=== PATIENT | female | born 1950 | race African-American/Black ===

== ENCOUNTER → 2016-12-12 | Outpatient (CLI) | payer MEDICARE, OTHER ==
[2015-08-30 11:00] VITALS: BP 158/66
[~2016-12-12] MED LIST: ALPR0.254 PO; AMLO1CAP10 PO; AMLO5TAB2 PO; ATOR10TA60 PO; DIPH1TAB5 PO; ESOM40CA PO; ESOM5SUS PO; FLUT16SP NS; GABA-586 PO; MELO15TA23 PO; METF-620 PO; METF500T4 PO; MONT10TA9 PO; OMEP40CA5 PO; ONDA4TAB10 PO; ONDA4TAB11 PO; PRAV40TA2 PO; SAXA1TBM3 PO; TRAM50TA PO; TRIA1CAP3 PO
--- NOTE | 2016-12-12 14:57 | RAD ---
DATE: 12/12/2016 EXAM: DIGITAL SCREEN BILAT W/CAD HISTORY: Routine screening COMPARISON: 09/24/2015 This study was interpreted with the benefit of Computerized Aided Detection (CAD). The breast parenchyma is primarily fatty replaced. Breast parenchyma level density A. FINDINGS: An old breast biopsy marker is again noted medially in the right breast. No new or enlarging breast densities are seen. Benign type calcifications are present. No suspicious microcalcifications have developed. IMPRESSION: Stable mammograms without evidence of malignancy. BI-RADS CATEGORY: 2 BENIGN FINDING(S) RECOMMENDED FOLLOW-UP: 12M 12 MONTH FOLLOW-UP PQRS compliance statement: Patient information was entered into a reminder system with a target due date for the next mammogram. Mammography is a sensitive method for finding small breast cancers, but it does not detect them all and is not a substitute for careful clinical examination. A negative mammogram does not negate a clinically suspicious finding and should not result in delay in biopsying a clinically suspicious abnormality. "Our facility is accredited by the [employer] Mammography [employer]."
== END | disposition home or self-care (01) ==
LOC: MAMMO 08:20
PROVIDERS: ATTEND Internal Medicine
DX: Z12.31 Encounter for screening mammogram for malignant neoplasm of breast (principal)
CPT/HCPCS: G0202; 77067

== ENCOUNTER 2017-06-10 18:35 | Emergency (ER) | payer MEDICARE, OTHER ==
[2017-06-10 19:11] VITALS: BP 204/87
--- NOTE | 2017-06-10 23:50 | PHYS DOC ---
Past Medical History Past Medical History: Diabetes-Type II, Hypertension Additional Past Medical Histor: Hard of hearing. Past Surgical History: Cholecystectomy, Gastric Bypass, Other Additional Past Surgical Histo: BREAST REDUCTION Alcohol Use: None Drug Use: None Adult General Chief Complaint Chief Complaint: SKIN PROBLEM [facility] Patient is a 66 year old who presents with rash to left lateral neck and left posterior earlobe. Rash began yesterday. It is erythematous mildly indurated and maculopapular It is painfull, minimally tender and itches. There is no drainage or crusting or soft tissue sloughing. No history of shingles. Review of Systems Review of Systems ROS PER HPI [] All other systems were reviewed and found to be within normal limits, except as documented in this note. Allergies Allergies Allergies Coded Allergies Type Severity Reaction Last Updated Verified Anesthetics - Amide Type Allergy Severe ANAPHYLAXIS (FROM EPIDURAL) 08/30/15 Yes Anesthetics - Dayanara Type- Parabens Allergy Severe ANAPHYLAXIS (FROM EPIDURAL) 08/30/15 Yes codeine Allergy Severe Anaphylaxis 08/29/15 Yes Physical Exam Physical Exam Constitutional: Well developed, well nourished, no acute distress, non-toxic appearance. [] HENT: Normocephalic, atraumatic, bilateral external ears normal, oropharynx moist, no oral exudates, nose normal. [] Eyes: PERRLA, EOMI, conjunctiva normal, no discharge. [] Neck: Normal range of motion, no tenderness, supple, no stridor. [] Cardiovascular:Heart rate regular rhythm, no murmur [] Lungs & Thorax: Bilateral breath sounds clear to auscultation [] Abdomen: Bowel sounds normal, soft, no tenderness, no masses, no pulsatile masses. [] Skin: NECK, lefts side of neck Erythematous mildly indurated and maculopapular. Painfull, minimally tender and itches. no drainage or crusting or soft tissue sloughing. No streaking or cellulitis.[] Extremities: No tenderness, no cyanosis, no clubbing, ROM intact, no edema. [] Neurologic: Alert and oriented X 3, normal motor function, normal sensory function, no focal deficits noted. [] Psychologic: Affect normal, judgement normal, mood normal. [] Current Patient Data Vital Signs Vital Signs Date Time Temp Pulse Resp B/P (MAP) Pulse Ox O2 Delivery O2 Flow Rate FiO2 06/10/17 19:11 97.9 66 16 100 Room Air 97.9 EKG EKG [] Radiology/Procedures Radiology/Procedures [] Course & Med Decision Making Course & Med Decision Making Pertinent Labs and Imaging studies reviewed. (See chart for details) [Neck Rash follows dermatome pattern consistent with shingles. Will treat with PCP follow-up. Return precautions reviewed.] Dragon Disclaimer Dragon Disclaimer This electronic medical record was generated, in whole or in part, using a voice recognition dictation system. Departure Departure Impression: Primary Impression: Shingles outbreak Disposition: 01 HOME, SELF-CARE Condition: GOOD Patient Instructions: Shingles, [id number] Additional Instructions: Please take medications as directed and follow up with your PCP in 3-5 days for re-evaluation. DAIN GOODWIN DO Jun 10, 2017 23:50
== END 2017-06-10 19:37 | disposition home or self-care (01) ==
LOC: ER 18:35
DX: B02.9 Zoster without complications (principal); E11.9 Type 2 diabetes mellitus without complications; I10 Essential (primary) hypertension; Z90.49 Acquired absence of other specified parts of digestive tract; Z88.5 Allergy status to narcotic agent; Z88.4 Allergy status to anesthetic agent
CPT/HCPCS: 99283

== ENCOUNTER 2017-06-27 16:07 | Emergency (ER) | payer MEDICARE, OTHER ==
[2017-06-27 17:11] LABS: ADD MAN DIFF? NO
[2017-06-27 17:13] LABS: BASO % 1 % (0-3); EOS % 7 % (0-3); HEMATOCRIT 38.3 % (36.0-47.0); HEMOGLOBIN 12.2 g/dL (12.0-15.5); LYMPH # 1.5 x10^3/uL (1.0-4.8); LYMPH % 20 % (24-48); MEAN CORPUSCULAR HEMOGLOBIN 28 pg (25-35); MEAN CORPUSCULAR HGB CONC 32 g/dL (31-37); MEAN CORPUSCULAR VOLUME 87 fL (79-100); MONO % 10 % (0-9); NEUT % 62 % (31-73); PLATELET COUNT 309 x10^3/uL (140-400); RED CELL DISTRIBUTION WIDTH 15.8 % (11.5-14.5); WHITE BLOOD COUNT 7.4 x10^3/uL (4.0-11.0)
[2017-06-27 17:24] LABS: ANION GAP 7 (6-14); BLOOD UREA NITROGEN 16 mg/dL (7-20); CARBON DIOXIDE 31 mmol/L (21-32); CHLORIDE 104 mmol/L (98-107); CREATININE 0.9 mg/dL (0.6-1.0); GFR 75.3; GLUCOSE 136 mg/dL (70-99); SODIUM 142 mmol/L (136-145)
[2017-06-27 17:27] LABS: ALBUMIN 3.1 g/dL (3.4-5.0); ALK PHOS 153 U/L (46-116); ALT (SGPT) 107 U/L (14-59); AST (SGOT) 84 U/L (15-37); DIRECT BILIRUBIN 0.1 mg/dL (0.0-0.2); TOTAL BILIRUBIN 0.3 mg/dL (0.2-1.0); TOTAL PROTEIN 7.8 g/dL (6.4-8.2)
[2017-06-27 17:29] LABS: TROPONINI < 0.017 ng/mL (0.000-0.055)
[2017-06-27 19:35] LABS: BILIRUBIN,URINE NEGATIVE (NEG); GLUCOSE,URINE 250 mg/dL (NEG); NITRITE,URINE NEGATIVE (NEG); PH,URINE 6.5; PROTEIN,URINE NEGATIVE (NEG-TRACE)
[2017-06-27 19:41] LABS: BACTERIA,URINE MODERATE /HPF (0-FEW); RBC,URINE 0 /HPF (0-2); SQUAMOUS EPITHELIAL CELL,UR MOD /LPF
== END 2017-06-27 20:52 | disposition home or self-care (01) ==
LOC: ER 16:07
DX: R42 Dizziness and giddiness (principal); E11.9 Type 2 diabetes mellitus without complications; I10 Essential (primary) hypertension; Z88.4 Allergy status to anesthetic agent; Z88.5 Allergy status to narcotic agent
CPT/HCPCS: 36415; 70450; 71010; 80048; 80076; 81001; 83690; 84484; 85025; 87086; 93005; 99285-25

== ENCOUNTER → 2017-12-14 | Outpatient (CLI) | payer MEDICARE, OTHER | END | disposition home or self-care (01) | LOC: MAMMO 08:29 | DX: Z12.31 Encounter for screening mammogram for malignant neoplasm of breast (principal) | CPT/HCPCS: 77063; 77067 ==

== ENCOUNTER → 2017-12-29 | Outpatient (CLI) | payer MEDICARE, OTHER | END | disposition home or self-care (01) | LOC: MAMMO 09:47 | DX: R92.8 Other abnormal and inconclusive findings on diagnostic imaging of breast (principal) | CPT/HCPCS: 76641; 77066 ==

== ENCOUNTER → 2018-01-21 | Day surgery (SDC) | payer OTHER ==
[~2018-01-21] MED LIST changes: -ALPR0.254 PO; -AMLO1CAP10 PO; -AMLO5TAB2 PO; -ATOR10TA60 PO; -DIPH1TAB5 PO; -ESOM40CA PO; -ESOM5SUS PO; -FLUT16SP NS; -GABA-586 PO; +LIDOCAINE 2% PF Vial for OR 5 ML VIAL.; -MELO15TA23 PO; -METF-620 PO; -METF500T4 PO; -MONT10TA9 PO; -OMEP40CA5 PO; -ONDA4TAB10 PO; -ONDA4TAB11 PO; -PRAV40TA2 PO; +PROPOFOL 20 ML IV; -SAXA1TBM3 PO; -TRAM50TA PO; -TRIA1CAP3 PO
== END | disposition home or self-care (01) ==
LOC: ENDOS 10:11
DX: Z12.11 Encounter for screening for malignant neoplasm of colon (principal); K63.5 Polyp of colon; K64.0 First degree hemorrhoids; Z80.0 Family history of malignant neoplasm of digestive organs; Z88.5 Allergy status to narcotic agent; Z88.8 Allergy status to other drugs, medicaments and biological substances; M19.90 Unspecified osteoarthritis, unspecified site; K21.9 Gastro-esophageal reflux disease without esophagitis; I10 Essential (primary) hypertension; E11.9 Type 2 diabetes mellitus without complications; Z82.49 Family history of ischemic heart disease and other diseases of the circulatory system; Z90.49 Acquired absence of other specified parts of digestive tract; Z98.890 Other specified postprocedural states; Z98.84 Bariatric surgery status; Z79.84 Long term (current) use of oral hypoglycemic drugs; Z79.899 Other long term (current) drug therapy; Z88.4 Allergy status to anesthetic agent; E78.00 Pure hypercholesterolemia, unspecified; E66.9 Obesity, unspecified; E03.9 Hypothyroidism, unspecified; F41.9 Anxiety disorder, unspecified; Z80.3 Family history of malignant neoplasm of breast
CPT/HCPCS: 45380; 88305; J2001; J2704

== ENCOUNTER → 2018-07-02 | Outpatient (CLI) | payer OTHER ==
[2018-01-21 12:55] VITALS: BP 162/72
[~2018-07-02] MED LIST changes: +ALPR0.254 PO; +AMLO1CAP10 PO; +AMLO5TAB7 PO; +ATOR10TA60 PO; +DIPH1TAB5 PO; +ESOM40CA PO; +ESOM5SUS PO; +FLUT16SP NS; +GABA300C18 PO; -LIDOCAINE 2% PF Vial for OR 5 ML VIAL.; +MELO15TA23 PO; +METF10007 PO; +METF500T16 PO; +MONT10TA9 PO; +OMEP40CA5 PO; +ONDA4TAB10 PO; +ONDA4TAB11 PO; +PRAV40TA2 PO; -PROPOFOL 20 ML IV; +SAXA1TBM3 PO; +TRAM50TA PO; +TRIA1CAP3 PO
--- NOTE | 2018-07-02 10:00 | RAD ---
DATE: 07/02/2018 EXAM: DIGITAL DIAGNOSTIC BILATERAL HISTORY: 6 month follow-up COMPARISON: 12/29/2017 This study was interpreted with the benefit of Computerized Aided Detection (CAD). Breast Density: FATTY The breast parenchyma is primarily fatty replaced. Breast parenchyma level density A. FINDINGS: 2-D and 3-D tomosynthesis imaging was performed in CC and MLO projections. A biopsy marker is again noted in the upper inner right breast. There is a stable small elongated opacity along the anterior aspect of the biopsy clip best seen on the cc view. No new or enlarging breast densities are seen. Bilateral breast calcifications are unchanged. These include a cluster of probably benign microcalcifications in the posterolateral aspect of the left breast. No new abnormality is detected. IMPRESSION: Stable, probably benign findings as described above. Follow-up bilateral mammography in 6 months is suggested. BI-RADS CATEGORY: 3 PROBABLY BENIGN FINDING(S)-SHORT INTERVAL FOLLOW-UP SUGGESTED RECOMMENDED FOLLOW-UP: 6M 6 MONTH FOLLOW-UP PQRS compliance statement: Patient information was entered into a reminder system with a target due date for the next mammogram. Mammography is a sensitive method for finding small breast cancers, but it does not detect them all and is not a substitute for careful clinical examination. A negative mammogram does not negate a clinically suspicious finding and should not result in delay in biopsying a clinically suspicious abnormality. "Our facility is accredited by the [employer] Mammography Program."
== END | disposition home or self-care (01) ==
LOC: MAMMO 08:31
PROVIDERS: ATTEND Physician Assistant Surgical
DX: R92.8 Other abnormal and inconclusive findings on diagnostic imaging of breast (principal)
CPT/HCPCS: 77066

== ENCOUNTER → 2018-10-21 | Outpatient (CLI) | payer OTHER ==
[2018-01-21 12:55] VITALS: BP 162/72
[~2018-10-21] MED LIST changes: +AMLO5TAB10 PO; -AMLO5TAB7 PO
[2018-10-21 11:47] LABS: BASO % 1 % (0-3); EOS # 0.2 x10^3/uL (0.0-0.7); EOS % 4 % (0-3); HEMOGLOBIN 11.6 g/dL (12.0-15.5); LYMPH # 1.5 x10^3/uL (1.0-4.8); LYMPH % 29 % (24-48); MEAN CORPUSCULAR HEMOGLOBIN 27 pg (25-35); MEAN CORPUSCULAR HGB CONC 32 g/dL (31-37); MEAN CORPUSCULAR VOLUME 85 fL (79-100); MONO # 0.7 x10^3/uL (0.0-1.1); MONO % 14 % (0-9); NEUT # 2.8 x10^3uL (1.8-7.7); NEUT % 53 % (31-73); PLATELET COUNT 315 x10^3/uL (140-400); RED BLOOD COUNT 4.36 x10^6/uL (3.50-5.40); RED CELL DISTRIBUTION WIDTH 16.6 % (11.5-14.5); WHITE BLOOD COUNT 5.3 x10^3/uL (4.0-11.0)
[2018-10-21 12:10] LABS: ALBUMIN 3.1 g/dL (3.4-5.0); ALBUMIN/GLOBULIN RATIO 0.8 (1.0-1.7); CALCIUM 9.6 mg/dL (8.5-10.1); CREATININE 0.9 mg/dL (0.6-1.0); GFR 75.1; POTASSIUM 4.3 mmol/L (3.5-5.1); TOTAL BILIRUBIN 0.5 mg/dL (0.2-1.0); TOTAL PROTEIN 7.1 g/dL (6.4-8.2)
[2018-10-21 12:15] LABS: BARBITURATES NEG (NEG); BENZODIAZEPINES NEG (NEG); CANNABINOIDS NEG (NEG); COCAINE NEG (NEG); METHADONE NEG (NEG); OPIATES NEG (NEG); PHENCYCLIDINE NEG (NEG)
[2018-10-21 12:16] LABS: AMPHETAMINE/METHAMPHETAMINE NEG (NEG)
== END | disposition home or self-care (01) ==
LOC: LAB 11:01
PROVIDERS: ATTEND Psychiatry & Neurology Neurology
DX: R51 Headache (principal); E03.9 Hypothyroidism, unspecified; I10 Essential (primary) hypertension; Z79.899 Other long term (current) drug therapy
CPT/HCPCS: 36415; 80053; 80307; 84443; 85025; 85651

== ENCOUNTER → 2018-11-04 | Outpatient (CLI) | payer OTHER ==
[2018-01-21 12:55] VITALS: BP 162/72
[~2018-11-04] MED LIST changes: +GADOTERATE 7.5 MMOL/15ML VIAL. IVP ONE
--- NOTE | 2018-11-04 10:49 | RAD ---
MRI Brain with and without contrast History: Worsening anterior headaches after a fall and head trauma 7 months ago Technique: Multiplanar, multi sequential pre and postcontrast MR imaging was performed of the brain. Comparison: None Findings: There is no evidence of recent infarct or cytotoxic edema. The ventricles, sulci, and cisterns are within normal limits in size and configuration. There is no significant midline shift, intraaxial mass effect, or focal abnormal extra-axial fluid collection. There is multifocal scattered overall mild T2 and FLAIR hyperintense signal abnormality of the supratentorial parenchyma bilaterally, multiple foci most numerous of the frontal parietal lobes. There is no significant hemosiderin deposition of the brain parenchyma. There is no nodular parenchymal or leptomeningeal enhancement. There is preservation of the major intracranial flow-voids at the skull base. The cerebellar tonsils are normal in location. There is no significant abnormality of the pineal gland or pituitary gland. Frontal sinus is not pneumatized. There is patchy negligible ethmoid air cell mucosal thickening. There has been lens surgery bilaterally, slightly disconjugate gaze. The mastoid air cells are aerated. There is preserved marrow signal of the clivus. There is degenerative disc disease of visualized C3-4 level. Impression: 1. There is scattered overall mild T2 and FLAIR hyperintense signal abnormality of the supratentorial parenchyma bilaterally. Findings are nonspecific, could be related to chronic microvascular ischemic disease in a patient this age. However white matter changes can be seen in patients with migraine headaches if corresponding history. Pattern is not particularly suggestive of an inflammatory demyelinating disease. Electronically signed by: Gómez Lock MD (11/04/2018 10:46 AM) [id number]
== END | disposition home or self-care (01) ==
LOC: MRI 08:45
PROVIDERS: ATTEND Psychiatry & Neurology Neurology
DX: G43.909 Migraine, unspecified, not intractable, without status migrainosus (principal); R90.82 White matter disease, unspecified; M50.31 Other cervical disc degeneration, high cervical region
CPT/HCPCS: 70553; A9575

== ENCOUNTER → 2019-02-02 | Outpatient (CLI) | payer OTHER ==
[2018-01-21 12:55] VITALS: BP 162/72
[~2019-02-02] MED LIST changes: -AMLO1CAP10 PO; +AMLO1CAP11 PO; -GADOTERATE 7.5 MMOL/15ML VIAL. IVP ONE; +MONT10TA49 PO; -MONT10TA9 PO
--- NOTE | 2019-02-02 14:22 | RAD ---
DATE: February 02, 2019 EXAM: MAMMRhoda NAZARIO HISTORY: History of benign right breast biopsy and bilateral reduction mammoplasty. COMPARISON: 2017 and 2018. This study was interpreted with the benefit of Computerized Aided Detection (CAD). 2-D digital mammographic views of both breasts were performed in the CC and MLO projections. 3-D digital tomosynthesis images of both breasts were performed in the CC and MLO projections and reviewed on a computer workstation. FINDINGS: Breast Density: FATTY The breast parenchyma is primarily fatty replaced. Breast parenchyma level density A.. There are no dominant suspicious masses, suspicious microcalcifications or evidence of architectural distortion. Again seen is a surgical clip of the upper medial aspect of the right breast. Small nodule is seen just anterior to the biopsy clip. This is stable. Benign-appearing calcifications within the posterior central aspect of the left breast are stable. IMPRESSION: Benign findings of both breasts. No mammographic indicators for malignancy. BI-RADS CATEGORY: 2 BENIGN FINDING RECOMMENDED FOLLOW-UP: 12M 12 MONTH FOLLOW-UP PQRS compliance statement: Patient information was entered into a reminder system with a target due date February 04, 2020 for the next mammogram. Mammography is a sensitive method for finding small breast cancers, but it does not detect them all and is not a substitute for careful clinical examination. A negative mammogram does not negate a clinically suspicious finding and should not result in delay in biopsying a clinically suspicious abnormality. "Our facility is accredited by the [employer] Mammography [employer]." The patient's breast density may affect the ability of mammography to detect breast cancer. There are 4 categories of breast density, A, B, C and D. Breast density A means that most of the breast tissue is replaced with adipose tissue and therefore is not dense. Breast density B means that the breast tissue is mildly dense and scattered. Breast density C means that the breast tissue is heterogeneously dense. Breast density D means that the breast tissue is very dense. Breast densities especially C and D may decrease the sensitivity of mammography to detect breast cancer. Therefore, the patient may benefit from 3-D breast mammography (3D breast tomography) as a part of their screening mammogram. Insurance may or may not pay for this additional imaging. The patient's breast density based on today's mammogram is category A.
== END | disposition home or self-care (01) ==
LOC: MAMMO 13:36
PROVIDERS: ATTEND Physician Assistant Surgical
DX: R92.1 Mammographic calcification found on diagnostic imaging of breast (principal)
CPT/HCPCS: 77066; G0279; 77062